=== PATIENT | male | born 1995 | race Caucasian/White ===

== ENCOUNTER 2017-11-04 17:42 | Emergency (ER) | payer OTHER, SELFPAY ==
[2017-11-04] MEDS ORDERED: AMOXicillin 250 MG CAP ONE (18:14)
[2017-11-04] MEDS ORDERED: Ketorolac Tromethamine 60 MG/2 ML VIAL ONE (18:14)
== END 2017-11-04 18:35 | disposition home or self-care (01) ==
LOC: SCSER 17:42
DX: J02.0 Streptococcal pharyngitis (principal)
CPT/HCPCS: 96372; J1885

== ENCOUNTER 2018-08-02 13:48 | Outpatient (CLI) | payer OTHER ==
--- NOTE | 2018-08-02 14:14 | RAD ---
EXAM: Two views chest PROVIDED CLINICAL HISTORY: Dyspnea COMPARISON: None FINDINGS: Cardiac silhouette and pulmonary vasculature are within normal limits. The lungs are clear. The osse ous structures have a normal appearance. IMPRESSION: No acute cardiopulmonary process.
== END 2018-08-02 13:49 | disposition home or self-care (01) ==
LOC: RAD 13:48
PROVIDERS: ATTEND Internal Medicine Pulmonary Disease
DX: R06.00 Dyspnea, unspecified (principal)
CPT/HCPCS: 71046